=== PATIENT | male | born 1955 | race Caucasian/White ===

== ENCOUNTER 2017-09-02 10:14 | Outpatient (CLI) | payer BC, SELFPAY ==
--- NOTE | 2017-09-02 13:38 | PRG ---
DATE OF SERVICE: 09/02/2017 HISTORY: Mr. Blair Antunez is a very pleasant 62-year-old gentleman accompanied by his spouse who presents to the Wound Center for evaluation of an ulceration of the right anterior lower leg. The pita alexander also has a small ulceration of the left anterior lower leg as well as an ulceration over the d orsum of the right foot between the second and third toes. The patient was last seen in the Wound Ce nter on 03/22/2015. The patient states that he has undergone venous ablation x8 for the right and le ft lower extremities. The patient states that he may undergo another ablation by Dr. Sanon. The patient states that the ulcerations of his right lower extremity have been present for approximately 3 months. The ulceration of the left anterior lower leg developed recently from a skin tear. The pita alexander was referred to the Wound Center by Dr. Mckeon. PAST MEDICAL HISTORY: 1. Atrial fibrillation. 2. Obstructive sleep apnea. 3. Diabetes mellitus. 4. Hypertension. 5. Gout. 6. Osteoarthritis. PAST SURGICAL HISTORY: 1. Herniorrhaphy. 2. Right knee surgery. 3. Pacemaker placement. 4. Left total knee arthroplasty, 07/17/2016. 5. Cholecystectomy. MEDICATIONS: 1. Allopurinol. 2. Metoprolol. 3. Gabapentin. 4. Lasix. 5. Eliquis. 6. Proscar. 7. Cozaar. 8. Ultram. 9. Zanaflex. PHYSICAL EXAMINATION: VITAL SIGNS: Temperature 97.8, pulse 61, respirations 19, blood pressure 141/65. Accu-Chek 101. EXTREMITIES: An ulceration over the right anterior lower leg is present which measures approximately 2.0 x 3.4 cm. An ulceration over the dorsum of the right foot between the second and third toes is also present and measures approximately 1.5 x 2.0 cm. Granulation tissue is present within the darlene ns of both wounds. Nonviable tissue present within the margins of each wound was debrided with an ex cisional full-thickness debridement with the use of a curette. No purulent drainage is associated wi th either wound. No cellulitis of the right lower extremity is appreciated. No maceration of the sk in of the periwound of either wound is noted. A dorsalis pedis pulse is palpable on the right. Nume osmar varicosities are present over the right and left lower legs. Discoloration of the skin of the r ight and left lower extremities is also present secondary to hemosiderin deposition. An ulceration o brie the left anterior lower leg is present which measures approximately 0.8 x 0.6 cm. This wound jeanette ears to be healing without complications or any signs of infection. ASSESSMENT AND PLAN: 1. 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 For the ulcerat ion of the right anterior lower leg, Silverlon, Webril, and the 3M Coban 2-layer compression system w ill be applied today. The patient is to discontinue the preceding dressing in 1 week and at this osiel e begin dressing changes of Silverlon and bordered gauze on a daily basis after cleansing and irrigat ion. The ulceration over the dorsum of the right foot and the ulceration over the left anterior lowe r leg are to be treated with dressing changes of Silverlon and bordered gauze on a daily basis after cleansing and irrigation. Arrangements will be made for the home delivery of dressing supplies. I w ill see Mr. Antunez again on 09/12/2017. No antibiotics will be prescribed today based upon the appear ance of the wounds. 2. Lymphedema tarda. Arrangements will be made for in-home lymphedema therapy. The patient states he has been previously prescribed compression garments. 3. Atrial fibrillation. 4. Obstructive sleep apnea. 5. Diabetes mellitus. The patient's Accu-Chek in clinic today is 101. The patient has been told th at for optimal wound healing, his blood glucoses should remain below 150. 6. Hypertension. 7. Gout. 8. Osteoarthritis.
== END 2017-09-02 10:15 | disposition home or self-care (01) ==
LOC: WCC 10:14
PROVIDERS: ATTEND Family Medicine
DX: I83.218 Varicose veins of right lower extremity with both ulcer of other part of lower extremity and inflammation (principal); I83.228 Varicose veins of left lower extremity with both ulcer of other part of lower extremity and inflammation; E11.622 Type 2 diabetes mellitus with other skin ulcer; L97.819 Non-pressure chronic ulcer of other part of right lower leg with unspecified severity; L97.829 Non-pressure chronic ulcer of other part of left lower leg with unspecified severity; I89.0 Lymphedema, not elsewhere classified; G47.33 Obstructive sleep apnea (adult) (pediatric); I10 Essential (primary) hypertension; M41.9 Scoliosis, unspecified; M19.90 Unspecified osteoarthritis, unspecified site
CPT/HCPCS: 11042; 99203; G0463

== ENCOUNTER 2017-09-12 09:26 | Outpatient (CLI) | payer BC ==
[~2017-09-12 09:26] MED LIST: Sodium Chloride 0.9% 15 ML NEB ONE
--- NOTE | 2017-09-12 11:37 | PRG ---
DATE OF SERVICE: 09/12/2017 HISTORY: Mr. Blair Antunez is a very pleasant 62-year-old gentleman accompanied by his spouse who presents to the Wound Center for evaluation of an ulceration of the right anterior lower leg. The patient also has a small ulceration of the left anterior lower leg as well as an ulceration over the dorsum of the right foot between the second and third toes. The patient was previously seen in the Wound Center in 2015. The patient previously stated that he has undergone venous ablation x8 for the right and left lower extremities. He stated that he may undergo another ablation by Dr. Sanon. The patient stated that the ulceration of his right lower extremity has been present for approximately 3 months. The patient stated that the ulceration of the left anterior lower leg developed recently from a skin tear. The patient was referred to the Wound Center by Dr. Mckeon. PHYSICAL EXAMINATION: VITAL SIGNS: Temperature 97.4, pulse 80, respirations 18, blood pressure 118/ 59. Accu-Chek 160. EXTREMITIES: An ulceration over the right anterior lower leg is present which measures approximately 3.0 x 2.0 cm. Granulation tissue is present within the wound margins. Nonviable tissue present within the wound margins was debrided with an excisional full-thickness debridement. No purulent drainage is associated with the wound. No cellulitis of the right lower leg is present. No maceration of the skin of the periwound is noted. A posterior tibial pulse is palpable on the right. Numerous varicosities are present over the right and left lower legs. Discoloration of the skin of the right and left lower legs is also present secondary to hemosiderin deposition. Edema of the right and left feet and lower legs is also present on exam today. The ulceration over the left anterior lower leg appears to be healing without complications or any signs of infection. Cellulitis of the dorsum of the right foot is present on exam today. ASSESSMENT AND PLAN: 1. 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 For the ulceration of the right anterior lower leg, Silverlon, Webril, and the 3M Coban 2-layer compression system will be applied today. The patient is to discontinue the preceding dressing in 1 week and at this time begin dressing changes of Silverlon on a daily basis after cleansing and irrigation. The ulceration over the left anterior lower leg will be treated with dressing changes of Silverlon on a daily basis after cleansing and irrigation also. The patient has been given a prescription for Bactrim DS #20 one p.o. b.i.d. x10 days for the cellulitis of the right forefoot. 2. Lymphedema tarda. Arrangements are being made for the initiation of in- home lymphedema therapy. The patient continues to have swelling of the lower extremities despite treatment with compression, elevation, and ablation. 3. Atrial fibrillation. 4. Obstructive sleep apnea. 5. Diabetes mellitus. The patient's Accu-Chek in clinic today is 160. The patient has been reminded that for optimal wound healing, his blood glucoses should remain below 150. 6. Hypertension. 7. Gout. 8. Osteoarthritis. MTDD
== END 2017-09-12 09:27 | disposition home or self-care (01) ==
LOC: WCC 09:26
PROVIDERS: ATTEND Family Medicine
DX: E11.622 Type 2 diabetes mellitus with other skin ulcer (principal); I83.218 Varicose veins of right lower extremity with both ulcer of other part of lower extremity and inflammation; I83.228 Varicose veins of left lower extremity with both ulcer of other part of lower extremity and inflammation; I89.0 Lymphedema, not elsewhere classified; I48.91 Unspecified atrial fibrillation; G47.33 Obstructive sleep apnea (adult) (pediatric); I10 Essential (primary) hypertension; M19.90 Unspecified osteoarthritis, unspecified site; M10.9 Gout, unspecified
CPT/HCPCS: 11042; 36416; A4218

== ENCOUNTER 2017-10-10 09:15 | Outpatient (CLI) | payer BC ==
--- NOTE | 2017-10-10 14:31 | PRG ---
DATE OF SERVICE: 10/10/2017 HISTORY: Mr. Blair Antunez is a very pleasant 62-year-old gentleman accompanied by his spouse who presented to the Wound Center for evaluation of an ulceration of the right anterior lower leg. The patient also has a small ulceration of the left anterior lower leg as well as a new ulceration of the right lateral lower leg. The patient previously stated that he has undergone venous ablation x8 for the right and left lower extremities. He previously stated that he may undergo another ablation by Dr. Sanon. The patient has been performing dressing changes of Silverlon for his wounds. PHYSICAL EXAMINATION: VITAL SIGNS: Temperature 97.7, pulse 67, respirations 19, blood pressure 123/61. Accu-Chek 150. EXTREMITIES: An ulceration of the right anterior lower leg is present, which measures approximately 4.0 x 2.3 cm. A new ulceration is present over the right lateral lower leg, which measures approxima tely 6.0 x 4.0 cm. An ulceration over the left lower leg is present, which measures approximately 0. 7 x 0.6 cm. No purulent drainage is associated with any of the wounds. Cellulitis of the right foot is present. Maceration of the skin of the dorsum of the right foot is present. Edema of the right foot is also present. Numerous varicosities are present over the right and left lower legs. Discolo ration of the skin of the right and left lower legs is also present secondary to hemosiderin depositi on. ASSESSMENT AND PLAN: 1. 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 For the ulcerat ions of the right and left lower legs, dressing changes of Xeroform gauze, ABDs and Kerlix will be in itiated today. Arrangements will also be made for the home delivery of dressing supplies. These daniela ssing changes are to be performed on a daily basis after cleansing and irrigation. The patient will continue to perform his own dressing changes. 2. Cellulitis of right foot. The patient was previously given a prescription for Bactrim DS number 20 one p.o. b.i.d. x10 days. I have explained to the patient that he has failed outpatient therapy. I have recommended evaluation for admission for treatment with IV antibiotics to Mr. Antunez. The pat ient states he will report to the Emergency Department at the completion of his visit today. 3. Lymphedema tarda. 4. Atrial fibrillation. 5. Obstructive sleep apnea. 6. Diabetes mellitus. The patient's Accu-Chek in clinic today is 150. The patient has been reminde d that for optimal wound healing, his blood glucoses should remain below 150. 7. Hypertension. 8. Gout. 9. Osteoarthritis.
== END 2017-10-10 09:16 | disposition home or self-care (01) ==
LOC: WCC 09:15
PROVIDERS: ATTEND Family Medicine
DX: I83.218 Varicose veins of right lower extremity with both ulcer of other part of lower extremity and inflammation (principal); I83.228 Varicose veins of left lower extremity with both ulcer of other part of lower extremity and inflammation; L03.115 Cellulitis of right lower limb; I89.0 Lymphedema, not elsewhere classified; I48.91 Unspecified atrial fibrillation; E11.622 Type 2 diabetes mellitus with other skin ulcer; L97.929 Non-pressure chronic ulcer of unspecified part of left lower leg with unspecified severity; L97.919 Non-pressure chronic ulcer of unspecified part of right lower leg with unspecified severity; G47.33 Obstructive sleep apnea (adult) (pediatric); M10.9 Gout, unspecified; M19.90 Unspecified osteoarthritis, unspecified site
CPT/HCPCS: 29581; 36416

== ENCOUNTER 2017-10-16 10:31 | Outpatient (CLI) | payer BC ==
--- NOTE | 2017-10-16 11:51 | PRG ---
DATE OF SERVICE: 10/16/2017 HISTORY: Mr. Blair Antunez is a very pleasant 62-year-old gentleman who presents to the Wound [facility] for evaluation of an ulceration of the right anterior lower leg. The patient also has a small ul ceration of the left anterior lower leg as well as a wound over the dorsum of the right foot. Since the patient was last seen in the Wound Center, Mr. Antunez was admitted for IV antibiotics for cellulit is of the right foot. The patient states that plain films of the right foot were obtained on the day of his admission. The patient has been performing dressing changes of Xeroform for his extremity wo unds. PHYSICAL EXAMINATION: VITAL SIGNS: Temperature 97.4, pulse 78, respirations 16, blood pressure 144/91. Accu-Chek 156. EXTREMITIES: An ulceration of the right anterior lower leg is present which measures approximately 1 .0 x 1.0 cm. An ulceration over the left anterior lower leg is present which measures approximately 0.1 x 0.1 cm. An ulceration over the dorsum of the right foot is present which measures approximatel y 4.5 x 5.2 cm. No purulent drainage is associated with any of the wounds. Erythema of the dorsum o f the right foot is present. Maceration of the skin of the dorsum of the right foot is present. Wilmer ma of the right foot is also present on exam today. ASSESSMENT AND PLAN: 1. Varicose veins of right and left lower extremities with ulcers. For the ulcerations of the right and left lower legs, dressing changes of Xeroform gauze, Kerlix, and Hossein bandages will be initiated today. Arrangements were previously made for the home delivery of dressing supplies. These dressing changes are to be performed on a daily basis after cleansing and irrigation. The patient will goran nue to perform his own dressing changes. 2. Ulceration of dorsum of right foot. As stated above, the patient was admitted for IV antibiotics . Because of continued erythema, edema, and maceration of the skin of the dorsum of the right foot, arrangements will be made for MRI of the right foot to look for findings suggestive of osteomyelitis. For the ulceration of the dorsum of the right foot, the patient is to perform dressing changes of X eroform, Kerlix, and an Hossein bandage. I will see Mr. Antunez after MRI of the right foot has been obtai zay. 3. Lymphedema tarda. 4. Atrial fibrillation. 5. Obstructive sleep apnea. 6. Diabetes mellitus. Patient's Accu-Chek in clinic today is 156. The patient has been reminded th at for optimal wound healing, his blood glucoses should remain below 150. 7. Hypertension. 8. Gout. 9. Osteoarthritis.
== END 2017-10-16 10:32 | disposition home or self-care (01) ==
LOC: WCC 10:31
PROVIDERS: ATTEND Family Medicine
DX: I83.018 Varicose veins of right lower extremity with ulcer other part of lower leg (principal); E11.622 Type 2 diabetes mellitus with other skin ulcer; L97.819 Non-pressure chronic ulcer of other part of right lower leg with unspecified severity; I83.028 Varicose veins of left lower extremity with ulcer other part of lower leg; L97.829 Non-pressure chronic ulcer of other part of left lower leg with unspecified severity; I83.014 Varicose veins of right lower extremity with ulcer of heel and midfoot; E11.621 Type 2 diabetes mellitus with foot ulcer; L97.419 Non-pressure chronic ulcer of right heel and midfoot with unspecified severity; I89.0 Lymphedema, not elsewhere classified; I48.91 Unspecified atrial fibrillation; G47.33 Obstructive sleep apnea (adult) (pediatric); I10 Essential (primary) hypertension; M10.9 Gout, unspecified; M19.90 Unspecified osteoarthritis, unspecified site
CPT/HCPCS: 36416; 97602

== ENCOUNTER → 2017-11-05 | Day surgery (SDC) | payer BC | LOC: MRI 11:53 → EDSTATUS 13:00 | PROVIDERS: ATTEND Family Medicine | DX: E11.621 Type 2 diabetes mellitus with foot ulcer (principal); L97.519 Non-pressure chronic ulcer of other part of right foot with unspecified severity ==

== ENCOUNTER 2017-12-11 13:04 | Outpatient (CLI) | payer BC ==
--- NOTE | 2017-12-11 14:20 | PRG ---
DATE OF SERVICE: 12/11/2017 HISTORY: Mr. Blair Antunez is a very pleasant 62-year-old gentleman who presents to the [facility] for evaluation of ulcerations of the right and left anterior lower legs. At the time of the jesús ent's last visit to the Wound Center on 10/16/2017, arrangements were attempted for MRI of the right foot to look for findings suggestive of osteomyelitis. Because MRI of the right foot was unable to b e obtained because of the patient's weight, Mr. Antunez was seen in consultation by Dr. Stanley Lynch o f Infectious Diseases for evaluation for osteomyelitis of the right foot. The patient states that he was told by Dr. Lynch imaging was not warranted at the present time. Also, since the patient's last visit to the Wound Center, Mr. Antunez has acquired a pneumatic pump for in-home lymphedema therapy of the right and left lower extremities. The patient states he has been performing his own dressing ch anges for his lower extremity wounds. PHYSICAL EXAMINATION: VITAL SIGNS: Temperature 98.0, pulse 80, respirations 21, blood pressure 122/78. Accu-Chek 134. EXTREMITIES: An ulceration of the right anterior lower leg is present, which measures approximately 1.5 x 1.0 cm. An ulceration over the left anterior lower leg is present, which measures approximatel y 0.9 x 1.0 cm. Granulation tissue is present within the margins of each wound. No purulent drainag e is associated with either wound. No erythema of the skin surrounding either wound is present. No maceration of the skin of the periwound of either wound is noted. The appearance of the dorsum of th e right foot has improved since the patient's last visit. Less erythema and maceration of the skin o f the dorsum of the right foot is present in addition less edema of the right foot is present on to y's exam than at the time of the patient's last visit. ASSESSMENT AND PLAN: 1. Varicose veins of right and left lower extremities with ulcers. For the ulcerations of the right and left lower legs, the patient is to continue dressing changes of Xeroform gauze and bordered gauz e after cleansing and irrigation. Arrangements were previously made for the home delivery of dressin g supplies. I will see Mr. Antunez again in 2-3 weeks. For the skin of the dorsum of the right foot, the patient is to apply Synalar ointment 0.025% b.i.d. The first application each day is to be after cleansing with Dove soap and water and patting dry. The patient is to continue to apply Kerlix to t he right foot. 2. Lymphedema tarda. The patient states he is utilizing his pneumatic pump consistently. 3. Atrial fibrillation. 4. Obstructive sleep apnea. 5. Diabetes mellitus. The patient's Accu-Chek in clinic today is 134. The patient has been reminde d that for optimal wound healing, his blood glucoses should remain below 150. 6. Hypertension. 7. Gout. 8. Osteoarthritis.
== END 2017-12-11 13:05 | disposition home or self-care (01) ==
LOC: WCC 13:04
PROVIDERS: ATTEND Family Medicine
DX: I83.018 Varicose veins of right lower extremity with ulcer other part of lower leg (principal); I83.028 Varicose veins of left lower extremity with ulcer other part of lower leg; E11.622 Type 2 diabetes mellitus with other skin ulcer; L97.929 Non-pressure chronic ulcer of unspecified part of left lower leg with unspecified severity; L97.919 Non-pressure chronic ulcer of unspecified part of right lower leg with unspecified severity; I89.0 Lymphedema, not elsewhere classified; I48.91 Unspecified atrial fibrillation; G47.33 Obstructive sleep apnea (adult) (pediatric); I10 Essential (primary) hypertension; M10.9 Gout, unspecified; M19.90 Unspecified osteoarthritis, unspecified site
CPT/HCPCS: 36416; 97602

== ENCOUNTER 2018-01-01 12:23 | Outpatient (CLI) | payer BC ==
[~2018-01-01 12:23] MED LIST changes: +Lidocaine 2% Jelly 5 ML TUBE ONE
--- NOTE | 2018-01-01 14:09 | PRG ---
DATE OF SERVICE: 01/01/2018 HISTORY: Mr. Blair Antunez is a very pleasant 62-year-old gentleman who presents to the [facility] for evaluation of ulcerations of the right and left anterior lower legs. The patient states that he is utilizing a pneumatic pump for in-home lymphedema therapy of the right and left lower extremit ies on a consistent basis. The patient has no complaints today. He denies any fever or chills. PHYSICAL EXAMINATION: VITAL SIGNS: Temperature 98.0, pulse 76, respirations 16, blood pressure 174/83. Accu-Chek 95. EXTREMITIES: An ulceration of the plantar surface of the right second toe is present. The dimension s of the wound are approximately 0.6 x 0.3 cm. Granulation tissue is present within the wound margin s. No purulent drainage is associated with the wound. No erythema of the skin surrounding the wound is present. No maceration of the skin of the periwound is noted. No significant edema of the right foot is present on exam today. The ulcerations of the right and left anterior lower legs have heale d completely. The appearance of the dorsum of the right foot has again improved since the patient's last visit. Less erythema and maceration of the skin of the dorsum of the right foot is present on t yusef's exam than at the time of the patient's last visit. ASSESSMENT AND PLAN: 1. Varicose veins of right and left lower extremities with ulcers. As stated above, the ulcerations of the right and left anterior lower legs have all completely healed. For the ulceration of the sunday ntar surface of the right second toe. The patient is to perform dressing changes of Xeroform gauze, 4 x 4's, and Kerlix. Arrangements were previously made for the home delivery of dressing supplies. I will see Mr. Antunez again in 3 weeks. For the skin of the dorsum of the right foot the patient is t o continue Synalar ointment 0.025% b.i.d. The first application each day is to be after cleansing wi th Dove soap and water and patting dry. 2. Lymphedema tarda. The patient states he is utilizing his pneumatic pump consistently. 3. Atrial fibrillation. 4. Obstructive sleep apnea. 5. Diabetes mellitus. The patient's Accu-Chek in clinic today is 95. The patient has been reminded that for optimal wound healing, his blood glucoses should remain below 150. 6. Hypertension. 7. Gout. 8. Osteoarthritis.
== END 2018-01-01 12:24 | disposition home or self-care (01) ==
LOC: WCC 12:23
PROVIDERS: ATTEND Family Medicine
DX: I83.018 Varicose veins of right lower extremity with ulcer other part of lower leg (principal); I83.028 Varicose veins of left lower extremity with ulcer other part of lower leg; E11.622 Type 2 diabetes mellitus with other skin ulcer; L97.819 Non-pressure chronic ulcer of other part of right lower leg with unspecified severity; L97.829 Non-pressure chronic ulcer of other part of left lower leg with unspecified severity; I89.0 Lymphedema, not elsewhere classified; I48.91 Unspecified atrial fibrillation; G47.33 Obstructive sleep apnea (adult) (pediatric); I10 Essential (primary) hypertension; M10.9 Gout, unspecified; M19.90 Unspecified osteoarthritis, unspecified site
CPT/HCPCS: 97602; A4218

== ENCOUNTER 2018-01-22 12:48 | Outpatient (CLI) | payer BC ==
--- NOTE | 2018-01-22 14:03 | PRG ---
DATE OF SERVICE: 01/22/2018 HISTORY: Mr. Blair Antunez is a very pleasant 62-year-old gentleman who presents to the [facility] [place] [facility] for evaluation of ulcerations of the right and left anterior lower legs. The patient again state s that he is utilizing a pneumatic pump for in-home lymphedema therapy of the right and left lower ex tremities on a consistent basis. Mr. Antunez has no complaints today. He denies any fever or chills. PHYSICAL EXAMINATION: VITAL SIGNS: Temperature 98.2, pulse 61, respirations 22, blood pressure 136/75, Accu-Chek 95. EXTREMITIES: An ulceration of the plantar surface of the right second toe is present. The dimension s of the wound are approximately 0.5 x 0.4 cm. Granulation tissue is present within the wound margin s. No purulent drainage is associated with the wound. No erythema of the skin surrounding the wound is present. No maceration of the skin of the periwound is noted. No significant edema of the right foot is present on exam today. The ulcerations of the right and left anterior lower legs have heale d completely and remain healed. Again, the appearance of the dorsum of the right foot has improved s wesley the patient's last visit. Less erythema and maceration of the skin of the dorsum of the right f oot is present on exam today than at the time of the patient's last visit. ASSESSMENT AND PLAN: 1. Varicose veins of right and left lower extremities with ulcers. As stated above, the ulcerations of the right and left anterior lower legs have all completely healed and remain healed. For the [facility] eration of the plantar surface of the right second toe, dressing changes of Promogran followed by Xer oform gauze will be initiated today. These dressing changes are to be performed on a daily basis aft er cleansing and irrigation. The patient will be performing his own dressing changes. I will see Mr Page Antunez again in 3 weeks. 2. Lymphedema tarda. As stated above, the patient reports he is utilizing his pneumatic pump consis tently. 3. Atrial fibrillation. 4. Obstructive sleep apnea. 5. Diabetes mellitus. The patient's Accu-Chek in clinic today is 95. The patient has been reminded that for optimal wound healing, his blood glucoses should remain below 150. 6. Hypertension. 7. Gout. 8. Osteoarthritis.
== END 2018-01-22 12:49 | disposition home or self-care (01) ==
LOC: WCC 12:48
PROVIDERS: ATTEND Family Medicine
DX: I83.018 Varicose veins of right lower extremity with ulcer other part of lower leg (principal); I83.028 Varicose veins of left lower extremity with ulcer other part of lower leg; E11.622 Type 2 diabetes mellitus with other skin ulcer; I89.0 Lymphedema, not elsewhere classified; I48.91 Unspecified atrial fibrillation; G47.33 Obstructive sleep apnea (adult) (pediatric); L97.929 Non-pressure chronic ulcer of unspecified part of left lower leg with unspecified severity; L97.919 Non-pressure chronic ulcer of unspecified part of right lower leg with unspecified severity; I10 Essential (primary) hypertension; M10.9 Gout, unspecified; M19.90 Unspecified osteoarthritis, unspecified site

== ENCOUNTER 2018-02-12 12:54 | Outpatient (CLI) | payer BC ==
[2018-02-12] MEDS ORDERED: Sodium Chloride 0.9% 15 ML NEB ONE (16:00)
--- NOTE | 2018-02-12 16:12 | PRG ---
DATE OF SERVICE: 02/12/2018 HISTORY: Mr. Blair Antunez is a very pleasant 62-year-old gentleman who presents to the [facility] for evaluation of an ulceration of the plantar surface of the right second toe. The patient has been performing dressing changes of Promogran for the ulceration of the plantar surface of the right second toe. Again, the patient states that he is utilizing a pneumatic pump for in-home lymphedema t herapy of the right and left lower extremities on a consistent basis. The patient has no other compl aints today. He denies any fever or chills. PHYSICAL EXAMINATION: VITAL SIGNS: Temperature 98.3, pulse 60, respirations 22, blood pressure 146/79. Accu-Chek 135. EXTREMITIES: An ulceration of the plantar surface of the right second toe is present, which measures approximately 0.5 x 0.8 cm. Granulation tissue is present within the wound margins. No purulent dr ainage is associated with the wound. No erythema of the skin surrounding the wound is present. No m aceration of the skin of the periwound is noted. No significant edema of the right foot is present o n exam today. The ulcerations of the right and left anterior lower legs have healed completely and r emain healed. Once again, the appearance of the dorsum of the right foot has improved since the jesús ent's last visit. In fact, no erythema or maceration of the skin of the dorsum of the right foot is present on exam today. ASSESSMENT AND PLAN: 1. Ulceration of plantar surface of right second toe. Dressing changes of Medihoney, gauze and Klin g will be initiated today. These dressing changes are to be performed on a daily basis after cleansi ng and irrigation. The patient will continue to perform his own dressing changes. Adhesive felt krishna l also be utilized at the time of dressing changes in order to provide for more optimal offloading of the ulceration of the plantar surface of the right second toe. The patient has been given a release in order to return to work and the patient will contact the clinic in order to schedule his next [facility] appointment. 2. Varicose veins of right and left lower extremities with ulcers. As stated above, the ulcerations of the right and left lower legs have completely healed and remain healed. 3. Lymphedema tarda. The patient is utilizing his pneumatic pump consistently. 4. Atrial fibrillation. 5. Obstructive sleep apnea. 6. Diabetes mellitus. The patient's Accu-Chek in clinic today is 135. The patient has been reminde d that for optimal wound healing, his blood glucoses should remain below 150. 7. Hypertension. 8. Gout. 9. Osteoarthritis.
== END 2018-02-12 12:55 | disposition home or self-care (01) ==
LOC: WCC 12:54
PROVIDERS: ATTEND Family Medicine
DX: L97.519 Non-pressure chronic ulcer of other part of right foot with unspecified severity (principal); I89.0 Lymphedema, not elsewhere classified; I48.91 Unspecified atrial fibrillation; G47.33 Obstructive sleep apnea (adult) (pediatric); E11.9 Type 2 diabetes mellitus without complications; I10 Essential (primary) hypertension; M10.9 Gout, unspecified; M19.90 Unspecified osteoarthritis, unspecified site
CPT/HCPCS: 97602; A4218

== ENCOUNTER 2020-12-02 12:07 | Outpatient (CLI) | payer MEDICARE ==
[2020-12-02 14:23] LABS: INR-International Normal Ratio 1.1; PTT 31.8 sec (22.0-33.0); Prothrombin Time 12.4 sec (9.5-12.1)
[2020-12-02 14:34] LABS: ALT (SGPT) 12 U/L (8-55); AST (SGOT) 14 U/L (5-34); Albumin 4.1 g/dL (3.4-4.8); Alkaline Phosphatase 56 U/L (40-110); Anion Gap 13 mmol/L (10-20); BUN (Urea Nitrogen) 30 mg/dL (8.4-25.7); Bilirubin, Total 1.3 mg/dL (0.2-1.2); Calc. Creatinine Clearance 0 mL/min (70-130); Carbon Dioxide 26 mmol/L (23-31); Chloride 102 mmol/L (98-107); Globulin 3.1 g/dL (2.4-3.5); Glucose 84 mg/dL (80-115); Potassium 4.4 mmol/L (3.5-5.1); Protein, Total 7.2 g/dL (5.8-8.1); Sodium 137 mmol/L (136-145)
[2020-12-02 15:11] LABS: #Basophils 0.1 10x3/uL (0.0-0.2); #Eosinphils 0.2 10x3/uL (0.0-0.5); #Monocytes 0.6 10x3/uL (0.0-1.1); #Neutrophils 3.9 10x3/uL (1.5-8.4); %Basophils 0.9 % (0.0-2.0); %Eosinophils 2.5 % (0.0-6.0); %Lymphocytes 30.1 % (18.0-47.0); %Monocytes 8.5 % (0.0-10.0); %Neutrophils 57.6 % (40.0-75.0); Hemoglobin 15.4 g/dL (13.5-17.5); Mean Corpuscular HGB CONC 32.8 g/dL (32.0-36.0); Mean Corpuscular Hemoglobin 29.2 pg (27.0-33.0); Mean Platelet Volume 9.9 fl (7.4-10.4); Platelet Count 139 10x3/uL (150-450); RBC Distribution Width 14.7 % (11.5-14.5); Red Blood Cell (RBC) Count 5.27 10x6/uL (4.32-5.72); White Blood Cell (WBC) Count 6.7 10x3/uL (3.5-10.5)
== END 2020-12-02 12:08 | disposition home or self-care (01) ==
LOC: LABBT 12:07
PROVIDERS: ATTEND Internal Medicine Cardiovascular Disease
DX: Z01.812 Encounter for preprocedural laboratory examination (principal); I48.21 Permanent atrial fibrillation; R58 Hemorrhage, not elsewhere classified
CPT/HCPCS: 80053; 85025; 85610; 85730; 86850; 86900; 86901

== ENCOUNTER 2021-01-12 | Outpatient (CLI) | payer MEDICARE | END 2021-01-12 09:18 | disposition home or self-care (01) ==

== ENCOUNTER 2021-07-31 09:34 | Outpatient (CLI) | payer MEDICARE ==
[2021-07-31 11:01] LABS: Hemoglobin 15.8 g/dL (13.5-17.5); Mean Corpuscular HGB CONC 32.2 g/dL (32.0-36.0); Mean Corpuscular Hemoglobin 29.9 pg (27.0-33.0); Mean Corpuscular Volume 92.6 fl (81.2-95.1); Mean Platelet Volume 10.2 fl (7.4-10.4); Platelet Count 153 10x3/uL (150-450); RBC Distribution Width 14.8 % (11.5-14.5); Red Blood Cell (RBC) Count 5.29 10x6/uL (4.32-5.72)
[2021-07-31 11:15] LABS: INR-International Normal Ratio 1.1; Prothrombin Time 11.8 sec (9.5-12.1)
[2021-07-31 11:16] LABS: Anion Gap 14 mmol/L (10-20); BUN (Urea Nitrogen) 21 mg/dL (8.4-25.7); Calc. Creatinine Clearance 0 mL/min (70-130); Calcium 8.8 mg/dL (7.8-10.44); Carbon Dioxide 30 mmol/L (23-31); Chloride 102 mmol/L (98-107); Glucose 126 mg/dL (80-115); Potassium 4.1 mmol/L (3.5-5.1); Sodium 142 mmol/L (136-145)
[2021-08-01 00:05] LABS: SARS-CoV-2 PCR by NAA Not Detected (NotDetected)
== END 2021-07-31 09:35 | disposition home or self-care (01) ==
LOC: LABBT 09:34
PROVIDERS: ATTEND Internal Medicine Cardiovascular Disease
DX: Z01.812 Encounter for preprocedural laboratory examination (principal); Z20.822 Contact with and (suspected) exposure to COVID-19
CPT/HCPCS: 80048; 85027; 85610; U0003; U0005

== ENCOUNTER 2021-09-25 07:53 | Outpatient (CLI) | payer MEDICARE ==
[2021-09-25 08:56] LABS: Prothrombin Time 11.2 sec (9.5-12.1)
[2021-09-25 08:59] LABS: Anion Gap 14 mmol/L (10-20); BUN (Urea Nitrogen) 23 mg/dL (8.4-25.7); Calc. Creatinine Clearance 0 mL/min (70-130); Calcium 8.7 mg/dL (7.8-10.44); Carbon Dioxide 25 mmol/L (23-31); Chloride 106 mmol/L (98-107); Glucose 92 mg/dL (80-115); Potassium 4.1 mmol/L (3.5-5.1); Sodium 141 mmol/L (136-145)
[2021-09-25 09:03] LABS: Hemoglobin 14.6 g/dL (13.5-17.5); Mean Corpuscular HGB CONC 32.5 g/dL (32.0-36.0); Mean Corpuscular Hemoglobin 29.4 pg (27.0-33.0); Mean Corpuscular Volume 90.3 fl (81.2-95.1); Mean Platelet Volume 10.4 fl (7.4-10.4); RBC Distribution Width 14.9 % (11.5-14.5); Red Blood Cell (RBC) Count 4.97 10x6/uL (4.32-5.72); White Blood Cell (WBC) Count 6.9 10x3/uL (3.5-10.5)
[2021-09-25 09:04] LABS: Platelet Count 141 10x3/uL (150-450)
[2021-09-25 23:01] LABS: SARS-CoV-2 PCR by NAA Not Detected (NotDetected)
== END 2021-09-25 07:54 | disposition home or self-care (01) ==
LOC: LABBT 07:53
PROVIDERS: ATTEND Internal Medicine Cardiovascular Disease
DX: Z01.812 Encounter for preprocedural laboratory examination (principal); I48.21 Permanent atrial fibrillation; Z20.822 Contact with and (suspected) exposure to COVID-19
CPT/HCPCS: 80048; 85027; 85610; U0003; U0005

== ENCOUNTER 2021-09-28 08:48 | Day surgery (SDC) | payer MEDICARE ==
[2021-09-28] MEDS ORDERED: Lidocaine 1% PF 5 ML VIAL ONE (11:37)
[2021-09-28] MEDS ORDERED: PHENYLEPHRINE-NS 100 MCG/ML 10 ML SYRINGE ONE (11:37)
[2021-09-28] MEDS ORDERED: PROPOFOL 200 MG/20 ML VIAL ONE (11:37)
== END 2021-09-28 12:41 | disposition home or self-care (01) ==
LOC: SDC 08:48
PROVIDERS: ATTEND Internal Medicine Cardiovascular Disease
PROC: B246ZZ4 Ultrasonography of Right and Left Heart, Transesophageal (ICD-10-PCS; principal; 2021-09-28)
DX: I48.21 Permanent atrial fibrillation (principal); I34.0 Nonrheumatic mitral (valve) insufficiency; I49.5 Sick sinus syndrome; I13.10 Hypertensive heart and chronic kidney disease without heart failure, with stage 1 through stage 4 chronic kidney disease, or unspecified chronic kidney disease; E11.22 Type 2 diabetes mellitus with diabetic chronic kidney disease; N18.30 Chronic kidney disease, stage 3 unspecified; E11.42 Type 2 diabetes mellitus with diabetic polyneuropathy; G47.33 Obstructive sleep apnea (adult) (pediatric); Z87.891 Personal history of nicotine dependence; Z86.73 Personal history of transient ischemic attack (TIA), and cerebral infarction without residual deficits; Z79.02 Long term (current) use of antithrombotics/antiplatelets; Z79.899 Other long term (current) drug therapy; Z88.7 Allergy status to serum and vaccine; Z91.010 Allergy to peanuts; Z95.0 Presence of cardiac pacemaker; Z95.818 Presence of other cardiac implants and grafts
CPT/HCPCS: 93312; J2704